=== PATIENT | female | born 1950 | race Caucasian/White ===

== ENCOUNTER 2018-04-09 00:52 | Outpatient (CLI) | payer MEDICARE, MEDICAID, SELFPAY ==
--- NOTE | 2018-04-09 14:15 | SCREENCT_ITS ---
SYMPTOMS/DIAGNOSIS: PERSONAL HISTORY OF NICOTINE DEPENDENCE, Z87.891 CT SCAN OF THE CHEST: CT scan of the chest was performed according to the lung cancer screening protocol. Comparison is 04/04/17. There is atherosclerosis of the thoracic aorta , but no aneurysmal dilatation is seen. The heart size is within normal limits. No significant pericardial effusion is seen. Coronary artery calcifications are present. No significant mediastinal, hilar or axillary adenopathy is present. No pleural effusion or pneumothorax is present. Central lobular and paraseptal emphysematous changes are seen in the lungs. There has been no change in size of the 3 mm noncalcified subpleural nodule in the anterolateral aspect of the left upper lobe. No new pulmonary nodules are present. There is mild subpleural scarring in the lungs. No focal consolidating infiltrates are present. Degenerative changes are seen in the spine. IMPRESSION: Stable 3 mm left upper lobe pulmonary nodule. No new pulmonary nodules. Category 2. Lung-RAD Category: 2- Benign Appearance/Behavior Lung- RAD Management of Findings: Continue annual LDCT screening in 12 months
== END 2018-04-09 00:53 ==
PROVIDERS: PCP Nurse Practitioner Family; Visit Provider Internal Medicine
DX: Z12.2 Encounter for screening for malignant neoplasm of respiratory organs (principal); R91.1 Solitary pulmonary nodule; Z87.891 Personal history of nicotine dependence
CPT/HCPCS: G0297

== ENCOUNTER 2018-06-20 01:24 | Outpatient (CLI) | payer MEDICARE, MEDICAID, SELFPAY ==
--- NOTE | 2018-06-20 13:15 | DI.RAD_ITS ---
SYMPTOMS/DIAGNOSIS: [facility], Z00.00, ASYMPTOMATIC POSTMENOPAUSAL STATUS, Z78.0 DEXA SCAN: The scanogram is unremarkable. For the left hip, a T score of -1.6 and a Z score of -0.3 indicate osteopenia and an increased fracture risk. For the lumbar spine, a T score of -1.0 and a Z score of 0.9 are within the normal range. For the left forearm, a T score of -1.1 and a Z score of 0.5 are within the normal range.
== END 2018-06-20 01:44 ==
PROVIDERS: PCP Nurse Practitioner Family; Visit Provider Nurse Practitioner Family
DX: M85.88 Other specified disorders of bone density and structure, other site (principal); Z78.0 Asymptomatic menopausal state
CPT/HCPCS: 77080

== ENCOUNTER 2018-07-18 11:50 | Outpatient (REF) | payer MEDICARE, MEDICAID, SELFPAY ==
[2018-07-18 22:43] LABS: Magnesium 1.7 mg/dL (1.8-2.4); Vitamin B12 601 pg/mL (193-986)
== END 2018-07-18 12:10 ==
LOC: NCHCN 11:50
PROVIDERS: PCP Nurse Practitioner Family; Visit Provider Nurse Practitioner Family
DX: K30 Functional dyspepsia (principal); F39 Unspecified mood [affective] disorder; M85.80 Other specified disorders of bone density and structure, unspecified site; M54.2 Cervicalgia; R25.1 Tremor, unspecified; R91.8 Other nonspecific abnormal finding of lung field; J44.9 Chronic obstructive pulmonary disease, unspecified
CPT/HCPCS: 82607; 83735

== ENCOUNTER 2018-09-05 14:27 | Outpatient (REF) | payer MEDICARE, MEDICAID, SELFPAY ==
[2018-09-05 21:26] LABS: Anion Gap 12.4 mmol/L (3-11); BUN 23 mg/dL (7-18); CO2 23.6 mmol/L (21.0-32.0); CREATININE 1.07 mg/dL (0.55-1.02); Chloride 102 mmol/L (98-107); Estimated GFR 51.31 (mL/min/1.73m2); Glucose 87 mg/dL (70-100); Magnesium 1.6 mg/dL (1.8-2.4); Potassium 4.6 mmol/L (3.5-5.1); Sodium 138 mmol/L (136-145)
== END 2018-09-05 14:47 ==
LOC: NCHCN 14:27
PROVIDERS: PCP Nurse Practitioner Family; Visit Provider Nurse Practitioner Family
DX: F25.1 Schizoaffective disorder, depressive type (principal); F39 Unspecified mood [affective] disorder; M85.80 Other specified disorders of bone density and structure, unspecified site; R05 Cough; K30 Functional dyspepsia; M54.5 Low back pain; J30.9 Allergic rhinitis, unspecified; J44.9 Chronic obstructive pulmonary disease, unspecified
CPT/HCPCS: 80048; 83735

== ENCOUNTER 2018-12-13 14:51 | Outpatient (REF) | payer MEDICARE, MEDICAID, SELFPAY ==
[2018-12-13 21:20] LABS: Magnesium 1.8 mg/dL (1.8-2.4)
== END 2018-12-13 15:11 ==
LOC: NCHCN 14:51
PROVIDERS: PCP Nurse Practitioner Family; Visit Provider Nurse Practitioner Family
DX: E83.42 Hypomagnesemia (principal)
CPT/HCPCS: 83735

== ENCOUNTER 2019-01-28 15:17 | Outpatient (CLI) | payer MEDICARE, MEDICAID, SELFPAY ==
--- NOTE | 2019-01-28 15:37 | DI.RAD_ITS ---
SYMPTOMS/DIAGNOSIS: COUGH, R05; CHRONIC OBSTRUCTIVE PULMONARY DISEASE, J44.9 CHEST X-RAY, PA AND LATERAL: Comparison is 07/25/17. The heart size and pulmonary vasculature are within normal limits. No infiltrates, effusions or pneumothoraces are identified. Degenerative changes are seen in the spine. IMPRESSION: No acute pulmonary process.
== END 2019-01-28 15:37 ==
PROVIDERS: PCP Nurse Practitioner Family; Visit Provider Nurse Practitioner Family
DX: R05 Cough (principal); J44.9 Chronic obstructive pulmonary disease, unspecified
CPT/HCPCS: 71046

== ENCOUNTER 2020-04-05 13:01 | Outpatient (REF) | payer MEDICARE, MEDICAID, SELFPAY ==
[2020-04-05 20:46] LABS: HCT 42.4 % (36.0-46.0); MCH 32.1 pg (27.0-33.0); MCV 97.2 fL (80-95); MPV 11.4 fL (8.0-11.0); Platelet Count 339 10^3/uL (130-400); RBC 4.36 10^6/uL (3.93-5.22); RDW 12.6 % (11.7-14.6); RDW-SD 45.3 fL; WBC 11.53 10^3/uL (4.4-10.8)
[2020-04-05 21:14] LABS: ALT 37 U/L (14-59); AST 27 U/L (15-37); Alkaline Phosphatase 72 U/L (46-116); Anion Gap 11.7 mmol/L (3-11); BUN 15 mg/dL (7-18); Bilirubin, Total 0.2 mg/dL (0.2-1.0); CO2 24.3 mmol/L (21.0-32.0); CREATININE 0.97 mg/dL (0.55-1.02); Calcium 9.1 mg/dL (8.5-10.1); Chloride 101 mmol/L (98-107); Estimated GFR 57.28 (mL/min/1.73m2); FREE T4 0.86 ng/dL (0.76-1.46); Glucose 99 mg/dL (74-106); NT-proBNP 100 pg/mL (<300); Potassium 4.6 mmol/L (3.5-5.1); Sodium 137 mmol/L (136-145); TSH 1.14 uIU/mL (0.36-3.74); Total Protein 7.2 g/dL (6.4-8.2)
== END 2020-04-05 13:21 ==
LOC: NCHCN 13:01
PROVIDERS: PCP Nurse Practitioner Family; Visit Provider Internal Medicine
DX: R25.1 Tremor, unspecified (principal); E83.42 Hypomagnesemia; R91.8 Other nonspecific abnormal finding of lung field; R06.09 Other forms of dyspnea
CPT/HCPCS: 80053; 85027; 83735; 83880; 84439; 84443

== ENCOUNTER 2021-07-21 16:40 | Outpatient (REF) | payer MEDICARE, MEDICAID, SELFPAY ==
[2021-07-21 21:14] LABS: Magnesium 2.2 mg/dL (1.8-2.4)
== END 2021-07-21 16:41 | disposition home or self-care (01) ==
LOC: NCHCN 16:40
PROVIDERS: PCP Nurse Practitioner Family; Visit Provider Nurse Practitioner Family
DX: E83.42 Hypomagnesemia (principal); R55 Syncope and collapse
CPT/HCPCS: 83735

== ENCOUNTER 2022-02-01 12:02 | Emergency (ER) | payer MEDICARE, MEDICAID, SELFPAY ==
[2022-02-01] VITALS (9 sets, daily range): BP systolic 101–151; BP diastolic 48–65; PULSE 55–78; RESP 16–24; TEMP 36.7–37.5; O2SAT 93–99
--- NOTE | 2022-02-01 12:18 | DI.RAD_ITS ---
Exam(s) XR CHEST 1V IN DI DEPT EXAM: XR CHEST 1V IN DI DEPT CLINICAL HISTORY: PUI, Cough TECHNIQUE: COMPARISON: CR XR CHEST 2V PA LATERAL from 01/28/2019 FINDINGS: There is a poor inspiration on this semi upright AP film. Lungs appear grossly clear. No pleural ef fusion. Normal cardiac size. IMPRESSION: No evidence of acute process. RADIATION DOSE DELIVERED: Total DLP
--- NOTE | 2022-02-01 12:30 | DI.CT_ITS ---
Exam(s) CT HEAD WO EXAM: CT HEAD WO CLINICAL HISTORY: AMS. TECHNIQUE: Imaging Protocol: Axial computed tomography images with coronal and sagittal reformatted images were created and reviewed COMPARISON: No exams were available for comparison FINDINGS: There is mild generalized cerebral atrophy. There is a question of small focal area of decreased attenuation in the periventricular to subcortica l white matter of left parietal lobe. No gross mass effect seen. This is an an indeterminate findin g but could represent evolving infarction or intracranial mass lesion. Correlation with brain MRI re commended for further evaluation. No evidence of acute intracranial hemorrhage, mass effect, or midline shift. The orbital structures are unremarkable. The temporal bone structures appear intact. Calvarium: Normal. Visualized Paranasal sinuses/Mastoids: Clear. IMPRESSION: Question area decreased attenuation left parietal lobe as described above, additional evaluation with MRI recommended to evaluate possible infarct or mass lesion.. RADIATION DOSE DELIVERED: 768.15mGy.cm Total DLP 768.15mGy.cm Total DLP !Error CTDIvol DATA REPOSITORY: All CT scans at this facility are submitted to the National Radiology Data Registry (NRDR) Dose Index Registry (DIR) with the [employer] (ACR). RADIATION OPTIMIZATION: All CT scans at this facility use at least one of these dose optimization te chniques: automated exposure control; mA and/or kV adjustment per patient size (includes targeted exa ms where dose is matched to clinical indication); or iterative reconstruction.
[2022-02-01 12:48] LABS: Abs Immature Grans 0.04 10^3/uL (0.0-0.06); Absolute Basophil Count 0.06 10^3/uL (0.0-0.2); Absolute Eosinophil Count 0.59 10^3/uL (0.0-0.7); Absolute Monocyte Count 1.08 10^3/uL (0.1-0.8); Absolute Neutrophil Count 6.37 10^3/uL (1.2-6.7); Basophils % 0.6; Eosinophils % 5.8; HCT 39.2 % (36.0-46.0); Immature Grans % 0.4; Lymphocytes % 19.7; MCH 32.4 pg (27.0-33.0); MCHC 33.2 % (32.0-36.0); MCV 98 fL (80-95); MPV 10.9 fL (8.0-11.0); Monocytes % 10.7; Neutrophils % 62.8; Platelet Count 272 10^3/uL (130-400); RBC 4.01 10^6/uL (3.93-5.22); RDW 12.6 % (11.7-14.6); RDW-SD 45.5 fL; WBC 10.14 10^3/uL (4.4-10.8)
--- NOTE | 2022-02-01 12:50 | ED.GENADUL_ITS ---
Discharge Plan Disposition Patient Disposition: STILL A PATIENT Discharge Details Primary Care Provider: Kiah Luna ED Provider: Carlos Alberto Nguyen Home Meds and New Rx's Prescriptions: No Action dextromethorphan-guaifenesin 60-1,200 mg tablet extended release 12 hr 1 tab PO Q12H Qty: 60 2RF magnesium L-lactate [Magtab] 84 mg tablet extended release 84 mg PO BID calcium carbonate-vitamin D3 600 mg(1,500mg) -400 unit tablet,chewable 1 tab PO DAILY (DME) Aerochamber MV spacer See Dose Instructions .ROUTE .MEDSUPPLY Qty: 1 Rx Instructions: As directed Dalila Back and Body 500-32.5 mg tablet 1 tab PO QHS PRN cyclobenzaprine 5 mg tablet 5 mg PO Q8H PRN PRN Label Comments: very rare use lorazepam 1 mg tablet 1 mg PO BID Qty: 180 3RF Rx Instructions: palliative care patient montelukast [Singulair] 10 MG tablet 10 mg PO DAILY fluoxetine [Prozac] 20 MG capsule 40 mg PO DAILY Spiriva with HandiHaler 1 PUFF capsule, w/inhalation device 1 cap Inhalation DAILY polyethylene glycol 3350 [Miralax] 17 gram/dose Powder 17 g PO DAILY PRN PreserVision AREDS-2 250-90-40-1 mg Capsule 1 tab PO BID prednisone 5 mg tablet 5 tab PO DAILY Label Comments: TAKE ONE TABLET BY MOUTH EVERY DAY ropinirole 0.5 mg Tablet 0.5 mg PO BID morphine 10 mg/5 mL solution 2.5 ml PO HS PRN Label Comments: GIVE 2.5ML BY MOUTH AT BEDTIME NEEDED FOR DYSPNEA +MAX 5ML PER DAY+ azelastine-fluticasone [Dymista] 137-50 mcg/spray [place],Non-Aerosol 1 spray INTRANASAL BID Rx Instructions: administer into each nostril docusate sodium 100 mg capsule 100 mg PO TID Rx Instructions: capsules only ' unable to swallow tablets albuterol sulfate [ProAir HFA] 90 mcg/actuation Hfa Aerosol Inhaler 2 puff INHALATION 6XD PRN primidone 50 mg tablet 100 mg PO BID Medical Decision Making 61-year-old female presents to the ER via EMS with a chief complaint of altered mental status. Per EMS stroke scale negative. On initial presentation she appears anxious and is coughing she reports that she is vaccinated for COVID. Per EMS report she does have some possible aphasia however this is intermittent. She does have a past medical history of COPD, anxiety, chronic bronchitis, morphine dependent she does live alone. She does have a past medical history of restless leg syndrome, tremor hypomagnesemia, dyspepsia, mood disorder, osteopenia and accidental falls. She does not take any blood thinners Last known well was this morning. She has no gross motor neurodeficit however she is shaky, has some restless leg syndrome, pupils are 5 mm on the right, 3 mm on the left reactive. She does have short-term memory loss. Work-up ordered including CBC CMP, urinalysis, In-N-Out catheter,urine drug screen, fluvid which is negative, CT head, 1346: Spoke with Dr. Bhatti radiology regarding head CT he reports a hypoattenuation in the left parietal lobe which could be a developing infarction versus mass he recommends an MRI brain without contrast which is ordered. Patient's labs were hemolyzed redrawn, 1411: Urine obtained via In and out specimen by myself.. Spoke with Krystal patients contact who will come visit. 1420: Will page palliative care. Fabiola AGUIRRE who recommends to keep them involved for either inpatient or home care. Patient at this time does not have HOME HEALTH services. Will consider Admission. 1449: Spoke with hospitalist team they recommend waiting for the MRI results and then are willing to admit patient if needed. Urinalysis shows no evidence for UTI. Does have some trace ketones PT is 10.4 INR 1.0 APTT 28.6 UDS is positive for barbiturates. Care is to be handed off to oncoming provider Cj Nguyen NP pending MRI result and disposition. I did discuss patient case in details with him he verbalizes understanding. This text was generated using Opternative dictation system, please disregard any oddities of phrase or misspellings. Medical Records Medical records reviewed: Yes I reviewed the patient's medical records. Medical records narrative: Patient was seen by palliative care Dr. Johnson October 2021 Lab Data Lab results reviewed: Yes I reviewed the patient's lab results. Labs: Laboratory Tests Range/Units 02/01/22 02/01/22 02/01/22 12:23 12:35 12:35 WBC (4.4-10.8) 10^3/uL 10.14 RBC (3.93-5.22) 10^6/uL 4.01 Hgb (11.2-15.7) g/dL 13.0 Hct (36.0-46.0) % 39.2 MCV (80-95) fL 98 H MCH (27.0-33.0) pg 32.4 MCHC (32.0-36.0) % 33.2 RDW (11.7-14.6) % 12.6 Plt Count (130-400) 10^3/uL 272 MPV (8.0-11.0) fL 10.9 Immature Gran % 0.4 Neutrophils % 62.8 Lymphocytes % 19.7 Monocytes % 10.7 Eosinophils % 5.8 Basophils % 0.6 Nucleated RBC % (0.0-0.3) % 0.0 Absolute Neutrophils (1.2-6.7) 10^3/uL 6.37 Absolute Lymphocytes (1.2-3.4) 10^3/uL 2.00 Absolute Monocytes (0.1-0.8) 10^3/uL 1.08 H Absolute Eosinophils (0.0-0.7) 10^3/uL 0.59 Absolute Basophils (0.0-0.2) 10^3/uL 0.06 PT (9.3-11.0) sec INR (0.9-1.1) APTT (21.0-27.5) sec Sodium Cancelled Potassium Cancelled Chloride Cancelled Carbon Dioxide Cancelled Anion Gap Cancelled BUN Cancelled Creatinine Cancelled Estimated GFR/1.73 m2 Cancelled Glucose Cancelled Calcium Cancelled Magnesium Cancelled Total Bilirubin Cancelled AST Cancelled ALT Cancelled Alkaline Phosphatase Cancelled Total Protein Cancelled Albumin Cancelled Urine Color (Yellow) Urine Clarity (Clear) Urine pH (5-8) Ur Specific [place] (1.005-1.025) Urine Protein (Negative) mg/dL Urine Ketones (Negative) mg/dL Urine Blood (Negative) Urine Nitrite (Negative) Urine Bilirubin (Negative) Urine Urobilinogen (Up TO 0.2) EU/dL Ur Leukocyte Esterase (Negative) Urine Glucose (Negative) mg/dL Urine Opiates Screen (Negative) Ur Barbiturates Screen (Negative) Ur Tricyclics Screen (Negative) Ur Amphetamines Screen (Negative) U Benzodiazepines Scrn (Negative) Urine Cocaine Screen (Negative) Ur THC Screen (Negative) Ethyl Alcohol Cancelled COVID-19 Source Nasopharynx SARS-CoV-2 (PCR) (Negative) Negative Influenza Type A (PCR) (Negative) Negative Influenza Type B (PCR) (Negative) Negative RSV (PCR) (Negative) Negative Range/Units 02/01/22 02/01/22 02/01/22 13:22 14:08 14:08 WBC (4.4-10.8) 10^3/uL RBC (3.93-5.22) 10^6/uL Hgb (11.2-15.7) g/dL Hct (36.0-46.0) % MCV (80-95) fL MCH (27.0-33.0) pg MCHC (32.0-36.0) % RDW (11.7-14.6) % Plt Count (130-400) 10^3/uL MPV (8.0-11.0) fL Immature Gran % Neutrophils % Lymphocytes % Monocytes % Eosinophils % Basophils % Nucleated RBC % (0.0-0.3) % Absolute Neutrophils (1.2-6.7) 10^3/uL Absolute Lymphocytes (1.2-3.4) 10^3/uL Absolute Monocytes (0.1-0.8) 10^3/uL Absolute Eosinophils (0.0-0.7) 10^3/uL Absolute Basophils (0.0-0.2) 10^3/uL PT (9.3-11.0) sec INR (0.9-1.1) APTT (21.0-27.5) sec Sodium 140 Potassium 4.2 Chloride 105 Carbon Dioxide 27.9 Anion Gap 7.1 BUN 16 Creatinine 1.0 Estimated GFR/1.73 m2 54.97 Glucose 85 Calcium 8.9 Magnesium 2.1 Total Bilirubin 0.3 AST 31 ALT 38 Alkaline Phosphatase 94 Total Protein 7.1 Albumin 3.7 Urine Color (Yellow) Yellow Urine Clarity (Clear) Clear Urine pH (5-8) 7.0 Ur Specific [place] (1.005-1.025) 1.015 Urine Protein (Negative) mg/dL Negative Urine Ketones (Negative) mg/dL Trace H Urine Blood (Negative) Negative Urine Nitrite (Negative) Negative Urine Bilirubin (Negative) Negative Urine Urobilinogen (Up TO 0.2) EU/dL 0.2 Ur Leukocyte Esterase (Negative) Negative Urine Glucose (Negative) mg/dL Negative Urine Opiates Screen (Negative) Negative Ur Barbiturates Screen (Negative) Positive A Ur Tricyclics Screen (Negative) Negative Ur Amphetamines Screen (Negative) Negative U Benzodiazepines Scrn (Negative) Negative Urine Cocaine Screen (Negative) Negative Ur THC Screen (Negative) Negative Ethyl Alcohol < 3.0 COVID-19 Source SARS-CoV-2 (PCR) (Negative) Influenza Type A (PCR) (Negative) Influenza Type B (PCR) (Negative) RSV (PCR) (Negative) Range/Units 02/01/22 14:25 WBC (4.4-10.8) 10^3/uL RBC (3.93-5.22) 10^6/uL Hgb (11.2-15.7) g/dL Hct (36.0-46.0) % MCV (80-95) fL MCH (27.0-33.0) pg MCHC (32.0-36.0) % RDW (11.7-14.6) % Plt Count (130-400) 10^3/uL MPV (8.0-11.0) fL Immature Gran % Neutrophils % Lymphocytes % Monocytes % Eosinophils % Basophils % Nucleated RBC % (0.0-0.3) % Absolute Neutrophils (1.2-6.7) 10^3/uL Absolute Lymphocytes (1.2-3.4) 10^3/uL Absolute Monocytes (0.1-0.8) 10^3/uL Absolute Eosinophils (0.0-0.7) 10^3/uL Absolute Basophils (0.0-0.2) 10^3/uL PT (9.3-11.0) sec 10.4 INR (0.9-1.1) 1.0 APTT (21.0-27.5) sec 28.6 H Sodium Potassium Chloride Carbon Dioxide Anion Gap BUN Creatinine Estimated GFR/1.73 m2 Glucose Calcium Magnesium Total Bilirubin AST ALT Alkaline Phosphatase Total Protein Albumin Urine Color (Yellow) Urine Clarity (Clear) Urine pH (5-8) Ur Specific [place] (1.005-1.025) Urine Protein (Negative) mg/dL Urine Ketones (Negative) mg/dL Urine Blood (Negative) Urine Nitrite (Negative) Urine Bilirubin (Negative) Urine Urobilinogen (Up TO 0.2) EU/dL Ur Leukocyte Esterase (Negative) Urine Glucose (Negative) mg/dL Urine Opiates Screen (Negative) Ur Barbiturates Screen (Negative) Ur Tricyclics Screen (Negative) Ur Amphetamines Screen (Negative) U Benzodiazepines Scrn (Negative) Urine Cocaine Screen (Negative) Ur THC Screen (Negative) Ethyl Alcohol COVID-19 Source SARS-CoV-2 (PCR) (Negative) Influenza Type A (PCR) (Negative) Influenza Type B (PCR) (Negative) RSV (PCR) (Negative) Core Measures Measure exclusions: not indicated HPI General Mode of arrival: EMS . Date/Time Provider Initiated Documentation: 02/01/22 12:18 . Limitations to Documentation: altered mental status . Information obtained by: patient, EMS, RN notes reviewed and old records reviewed . HPI Narrative: 71-year-old female presents to the ER via EMS with a chief complaint of altered mental status. Per EMS Cinncinati stroke scale negative. On initial presentation she appears anxious and is coughing she reports that she is vaccinated for COVID. Per EMS report she does have some possible aphasia however this is intermittent. She does have a past medical history of COPD, anxiety, chronic bronchitis, morphine dependent she does live alone. She does have a past medical history of restless leg syndrome, tremor, dysphagia, hypomagnesemia, dyspepsia, mood disorder, osteopenia and accidental falls. She does not take any blood thinners Last known well was this morning. She has no gross motor neurodeficit however she is shaky, has some restless leg syndrome, pupils are 5 mm on the right, 3 mm on the left reactive. She does have short-term memory loss. Related Data Home Medications Medication Instructions Recorded Confirmed fluoxetine 20 mg capsule (Prozac) 40 mg PO DAILY 11/08/16 02/01/22 montelukast 10 mg tablet 10 mg PO DAILY 11/08/16 02/01/22 (Singulair) tiotropium bromide 18 mcg capsule 1 cap inhalation DAILY 11/08/16 02/01/22 with inhalation device (Spiriva with HandiHaler) calcium carbonate 600 mg-vitamin 1 tab PO DAILY 02/26/19 02/01/22 D3 10 mcg (400 unit) chewable tablet inhalational spacing device #1 ea 02/26/19 10/18/21 (Aerochamber MV spacer) magnesium L-lactate 84 mg 84 mg PO BID 02/26/19 02/01/22 tablet,extended release (Magtab) primidone 50 mg tablet 100 mg PO BID 02/26/19 02/01/22 dextromethorphan-guaifenesin ER 60 1 tab PO Q12H #60 tabs 10/06/20 02/01/22 mg-1,200 mg tab,extend release,12hr aspirin-caffeine 500 mg-32.5 mg 1 tab PO QHS PRN 01/26/21 02/01/22 tablet (Dalila Back and Body) cyclobenzaprine 5 mg tablet 5 mg PO Q8H PRN PRN 01/26/21 02/01/22 lorazepam 1 mg tablet 1 mg PO BID anxiety #180 tabs 12/20/21 02/01/22 albuterol sulfate 90 mcg/actuation 2 puff inhalation 6XD PRN 02/01/22 02/01/22 aerosol inhaler (ProAir HFA) azelastine-fluticasone 137 mcg-50 1 spray intranasal BID 02/01/22 02/01/22 mcg/spray nasal spray (Dymista) docusate sodium 100 mg capsule 100 mg PO TID 02/01/22 02/01/22 morphine 10 mg/5 mL oral solution 2.5 ml PO HS PRN 02/01/22 02/01/22 polyethylene glycol 3350 17 17 g PO DAILY PRN 02/01/22 02/01/22 gram/dose oral powder (Miralax) prednisone 5 mg tablet 5 tab PO DAILY 02/01/22 02/01/22 ropinirole 0.5 mg tablet 0.5 mg PO BID 02/01/22 02/01/22 vit C 250 mg-vit E 90 mg-zinc 40 1 tab PO BID 02/01/22 02/01/22 mg-copper 1 [id number] capsule (PreserVision AREDS-2) Previous Rx's Medication Instructions Recorded dextromethorphan-guaifenesin ER 60 1 tab PO Q12H #60 tabs 10/06/20 mg-1,200 mg tab,extend release,12hr lorazepam 1 mg tablet 1 mg PO BID anxiety #180 tabs 12/20/21 Allergies Allergy/AdvReac Type Severity Reaction Status Date / Time codeine AdvReac Intermediate Nausea Unverified 02/01/22 12:23 doxycycline AdvReac Intermediate Nausea Unverified 02/01/22 12:23 hydrocodone AdvReac Intermediate Nausea Unverified 02/01/22 12:23 General Stated Complaint: AMS/LOC JESSICA: 3 Review of Systems All systems reviewed & are unremarkable except as noted in HPI and below Constitutional Constitutional: Reports as per HPI and Denies headache(s) ENT Ears, Nose, Mouth, and Throat: Denies headache(s) Cardiovascular Cardiovascular: Denies chest pain and Reports orthopnea Respiratory Respiratory: Reports cough Neurologic Neurologic: Denies headache(s) PFSH All Active Problems Chronic bronchitis (Acute) Lives alone with help available (Acute) Constipation (Acute) Dysphagia (Chronic) Dependence on continuous supplemental oxygen (Chronic) Allergic rhinitis (Acute) Oxygen desaturation (Chronic) with activity Anxiety (Chronic) Transitioned from hospice to self-care (Acute) Benzodiazepine dependence (Chronic) Morphine dependence (Chronic) takes for her chronic dyspnea Sedentary lifestyle (Acute) Dyspnea on minimal exertion (Chronic) Palliative care patient (Chronic) History of tobacco use (Chronic) 35 pack years COPD (chronic obstructive pulmonary disease) (Chronic) Medical History Accidental fall Bronchitis Cataracts, bilateral Cough Dyspepsia Hypomagnesemia Mood disorder Osteopenia Restless legs syndrome Tremor Family History Sister Atrial fibrillation Mother Atrial fibrillation COPD (chronic obstructive pulmonary disease) Advanced age 100 years old in 2020 Brother Asthma Brother Lung cancer Father , age 79 from esophageal cancer history of smoking Esophageal cancer Social History Smoking/Tobacco Use Status: Former Tobacco Use Tobacco: How many years used: 40 Second Hand Exposure: Yes Smoking risk assessment performed?: Yes Alcohol Intake: former Drug use: Never Substance use type: does not use Adopted: No Caregiver/Support person: Yes (sister Jb; lives near by) Details: mother, 101, lives in [facility] Household members: none Housing: apartment Number of Children: 0 number of grandchildren: 0 Communication Needs: Corrective Lenses Education Level: high school Do you need help understanding health information?: Often current occupation: retired, used to work in retail sales Pets and animals: No (had her dog Karena put down January 2021; could no longer care for her) Current gender identity: female What is your relationship status?: How often do you talk on the phone with friends or family?: three or more times per week How often do you get together with friends or relatives?: once per week Panel score (0-1 are the most socially isolated patients): 1 What type of physical activity do you participate in: assisted ambulation and sedentary lifestyle Duration: < 15 minutes/day Frequency: daily Special chivo needs: No Agree to transfusion: No Seatbelt use: always Working smoke detector in home: Yes Fire extinguisher in home: Yes Carbon monox detector in home: Yes Do you feel safe at home: Yes Do you feel safe in your relationship?: Yes Additional Social history: Bebe's mother aged 101 moved to [facility] in 2019. Bebe had been caregiver for her mom, putting up her medications, checking on her daily. This was getting hard for Bebe to do. Sister Krystal regularly involved though spends time at her camp in the summer. Bebe had a little dog, Karena. She had her put down in January 2021 as she felt she could not take care of her. She couldn't take her for walks. She got breathless just taking her outside to defecate. Loner. Other people get on my nerves. Gets MOW and sister takes her shopping. Doesn't socialize, especially not since COVID. Exam Narrative Exam Narrative: Constitutional: Alert and oriented x2. Appears stated age. Normal body habitus. Head: Normocephalic, no trauma. Eyes: Pupils reactive to light, 3 mm on left 5 mm on the right noted, Eyelids symmetrical without lesions, discharge, or swelling. ENT: Bilateral TM's WNL, External ear normal to inspection, no mastoid TTP, swelling, or erythema, Nasal turbinates WNL, no nasal discharge. Chest: RRR, Normal S1, S2, distal pulses intact. Resp: Lungs Bilaterally with Rales. No increase work of breathing. Abdomen: Soft, non-distended, no palpated mass. Musculoskeletal: Unable to assess gait. Skin: No suspicious rashes or lesions. Capillary refill less than 2 sec. Neurologic: Alert and oriented x 2. Intermittently. She does have some expressive aphasia. Motor: No significant gross deficits noted, no pronator drift, decreased pedal flexion, decreased motor strength in bilateral lower extremities, no leg drop bilaterally. Reflexes: DTR's intact bilaterally. Hematologic/Lymphatic: No ecchymosis, no lymphadenopathy. Psych Speech and Movement: restless Affect: anxious affect Course Vital Signs Vital signs: Vital Signs Temperature 36.7 C 02/01/22 12:15 Pulse 76 02/01/22 12:15 Respiratory Rate 24 02/01/22 12:15 Blood Pressure 151/65 H 02/01/22 12:15 Pulse Oximetry 99 02/01/22 12:15 Temperature 36.7 C 02/01/22 12:15 Temperature Source Temporal Artery Scan 02/01/22 12:15 Pulse 76 02/01/22 12:15 Respiratory Rate 24 02/01/22 12:15 Blood Pressure 151/65 H 02/01/22 12:15 Blood Pressure Position Sitting 02/01/22 12:15 Pulse Oximetry 99 02/01/22 12:15 Oxygen Delivery Method Room Air 02/01/22 12:15 Oxygen Flow Rate 0 02/01/22 12:15 Pain Level 0 02/01/22 12:15 Lab/Test Results Lab/Test Results: Laboratory Tests Range/Units 02/01/22 12:35 WBC (4.4-10.8) 10^3/uL 10.14 RBC (3.93-5.22) 10^6/uL 4.01 Hgb (11.2-15.7) g/dL 13.0 Hct (36.0-46.0) % 39.2 MCV (80-95) fL 98 H MCH (27.0-33.0) pg 32.4 MCHC (32.0-36.0) % 33.2 RDW (11.7-14.6) % 12.6 Plt Count (130-400) 10^3/uL 272 MPV (8.0-11.0) fL 10.9 Immature Gran % 0.4 Neutrophils % 62.8 Lymphocytes % 19.7 Monocytes % 10.7 Eosinophils % 5.8 Basophils % 0.6 Nucleated RBC % (0.0-0.3) % 0.0 Absolute Neutrophils (1.2-6.7) 10^3/uL 6.37 Absolute Lymphocytes (1.2-3.4) 10^3/uL 2.00 Absolute Monocytes (0.1-0.8) 10^3/uL 1.08 H Absolute Eosinophils (0.0-0.7) 10^3/uL 0.59 Absolute Basophils (0.0-0.2) 10^3/uL 0.06 Procedures Other Description: Urinary catheter specimen obtained, Clear yellow urine obtained. Sign Out Sign Out Data: Sign Out Comment: Pending MRI result. Altered mental status, patient is a palliative care patient. I did consult with palliative care and hospitalist. Sister Krystal should be coming into the hospital to visit. CT showed possible evolving infarct versus mass. They recommend MRI. Consider admission if discharged patient needs home health care Last updated by Jennie Webster at 02/01/22 15:30
[2022-02-01 13:11] LABS: COVID-19 PCR Negative (Negative); Influenza A PCR Negative (Negative); Influenza B PCR Negative (Negative); RSV PCR Negative (Negative)
[2022-02-01 13:16] LABS: Source Nasopharynx
[2022-02-01] MEDS: LORazepam 1 MG TAB PO (13:26)
--- NOTE | 2022-02-01 13:30 | DI.MRI_ITS ---
Exam(s) MR BRAIN WO EXAM: MR BRAIN WO CLINICAL HISTORY: AMS, R/O Mass versus Infarct TECHNIQUE: Multiplanar multisequence MRI of the brain was performed. COMPARISON: No exams were available for comparison FINDINGS: There is mild generalized cerebral atrophy. There are diffuse areas of abnormal signal in periventricular white matter consistent with microvascu lar ischemic change. Some asymmetry is noted with more focal areas of signal abnormality in left par ietooccipital region, this could represent old infarct. No mass effect identified. No evidence of d iffusion restriction to suggest acute or subacute infarction period. The orbital and temporal bone structures appear intact as does the pituitary. Diffusion weighted imaging shows no evidence of infarction. Susceptibility weighted imaging shows no evidence of intracranial hemorrhage. There is normal flow void in the lummi of [place] vasculature. IMPRESSION: No evidence of acute intracranial process.. DATA REPOSITORY:
[2022-02-01 14:18] LABS: Bilirubin Negative (Negative); Blood Negative (Negative); Clarity Clear (Clear); Glucose Negative (Negative); Ketones Trace mg/dL (Negative); Leukocyte Esterase Negative (Negative); Nitrite Negative (Negative); Specific Gravity 1.015 (1.005-1.025); Urobilinogen 0.2 EU/dL (Up TO 0.2)
[2022-02-01 14:40] LABS: ALT 38 U/L (14-59); AST 31 U/L (15-37); Albumin 3.7 g/dL (3.4-5.0); Alkaline Phosphatase 94 U/L (46-116); Anion Gap 7.1 mmol/L (3-11); BUN 16 mg/dL (7-18); Bilirubin, Total 0.3 mg/dL (0.2-1.0); CO2 27.9 mmol/L (21.0-32.0); Calcium 8.9 mg/dL (8.5-10.1); Chloride 105 mmol/L (98-107); Estimated GFR 54.97 (mL/min/1.73m2); Glucose 85 mg/dL (74-106); Magnesium 2.1 mg/dL (1.8-2.4); Potassium 4.2 mmol/L (3.5-5.1); Sodium 140 mmol/L (136-145); Total Protein 7.1 g/dL (6.4-8.2)
[2022-02-01 14:57] LABS: ETHANOL BLOOD < 3.0 mg/dL (<10)
[2022-02-01 15:05] LABS: PTT Activated 28.6 sec (21.0-27.5); Prothrombin Time 10.4 sec (9.3-11.0)
[2022-02-01 15:19] LABS: *AMPHETAMINES SCREEN URINE Negative (Negative); *BARBITURATES SCREEN URINE Positive (Negative); *BENZODIAZEPINES SCREEN URINE Negative (Negative); Cannabinoids THC Negative (Negative); Cocaine Screen,Urine Negative (Negative); OPIATES URINE SCREEN Negative (Negative); Tricyclic Antidepressants Negative (Negative)
[2022-02-01] MEDS: LORazepam 2 MG/ML VIAL 0.5 MG IVP (15:31)
--- NOTE | 2022-02-01 17:04 | NUR.NOTE ---
Nursing Note: Per Palliative Care, home visit February 07 =
--- NOTE | 2022-02-01 17:04 | NUR.NOTE ---
Nursing Note: Per Palliative Care, home visit on February 07 at 1pm. Edilia Parmar
--- NOTE | 2022-02-01 18:02 | NUR.NOTE ---
After pt ate 100% of her supper she walked 50+ steps in the ER allan, her gait is steady with good balance. Pt reported SOB with ambulation, able to recover her breath within 1 minute of sitting back down. Lung sounds with expiratory wheezing auscultated throughout posteriorly after ambulation. Pt's provider Rafa Nguyen updated regarding this assesment.
--- NOTE | 2022-02-01 18:44 | ED.PROG_ITS ---
Date of service: 02/01/22 Time of Service: 15:50 Medical Decision Making Please see Hoa Webster's initial documentation for HPI, review of systems, and exam. Patient was signed out to me pending MRI results and reassessment. MRI was reviewed with radiologist and showed microvascular ischemic changes that were chronic in nature with no signs of acute/subacute findings including stroke. Patient was reassessed and stated that she was feeling better. Patient had more alertness and had no complaints at this time. She stated that this morning she was experiencing brain fog and having difficulty making decisions. Patient denied any focal deficits noted at that time. Patient is now ambulatory and continuing to feel improvement. Did contact hospitalist for consideration of admission due to altered mental status mainly for an observation stay and possible outpatient resources as needed. After discussion of case with hospitalist he was able to contact patient's palliative care provider whom recommended discharge with them arranging a home visit next week. Patient was given a meal and was able to eat the meal and continue to state signs of improvement. Patient is agreeable to discharge with being informed that she may return to the emergency department for any new or significant worsening of symptoms but given that she is ambulatory, able to appropriately intake food, and states improvement I do feel that she is safe for discharge at this point. I question possible acute anxiety reaction due to patient's history but this is difficult to determine. Given unremarkable laboratory work-up and negative MRI with improvement of symptoms I am reassured for patient to be discharged on outpatient basis. Plan of care was discussed with her sister who also helps care for her. Medical Records Medical records reviewed: Yes I reviewed the patient's medical records. Lab Data Lab results reviewed: Yes I reviewed the patient's lab results. Exam Const General: cooperative, comfortable, no acute distress, not anxious, not ill appearing and not lethargic Orientation: alert, awake and oriented x3 HENMT Mouth: moist mucous membranes Resp Effort & Inspection: normal respiratory effort, able to speak in complete sentences and no respiratory distress Neuro General: patient alert, patient awake, patient oriented x3, moves all ext remities and no focal motor deficits Sensory Exam: no sensory deficits noted Sign Out Sign Out Data: Sign Out Comment: Pending MRI result. Altered mental status, patient is a palliative care patient. I did consult with palliative care and hospitalist. Sister Krystal should be coming into the hospital to visit. CT showed possible evolving infarct versus mass. They recommend MRI. Consider admission if discharged patient needs home health care Last updated by Jennie Webster at 02/01/22 15:30 Discharge Plan Disposition Patient Disposition: HOME Condition: Improving Discharge Details Clinical Impression: Acute confusion, COPD (chronic obstructive pulmonary disease), Palliative care patient, Anxiety Primary Care Provider: Kiah Luna ED Provider: Carlos Alberto Nguyen Home Meds and New Rx's Prescriptions: No Action dextromethorphan-guaifenesin 60-1,200 mg tablet extended release 12 hr 1 tab PO Q12H Qty: 60 2RF magnesium L-lactate [Magtab] 84 mg tablet extended release 84 mg PO BID calcium carbonate-vitamin D3 600 mg(1,500mg) -400 unit tablet,chewable 1 tab PO DAILY (DME) Aerochamber MV spacer See Dose Instructions .ROUTE .MEDSUPPLY Qty: 1 Rx Instructions: As directed Dalila Back and Body 500-32.5 mg tablet 1 tab PO QHS PRN cyclobenzaprine 5 mg tablet 5 mg PO Q8H PRN PRN Label Comments: very rare use lorazepam 1 mg tablet 1 mg PO BID Qty: 180 3RF Rx Instructions: palliative care patient montelukast [Singulair] 10 MG tablet 10 mg PO DAILY fluoxetine [Prozac] 20 MG capsule 40 mg PO DAILY Spiriva with HandiHaler 1 PUFF capsule, w/inhalation device 1 cap Inhalation DAILY polyethylene glycol 3350 [Miralax] 17 gram/dose Powder 17 g PO DAILY PRN PreserVision AREDS-2 250-90-40-1 mg Capsule 1 tab PO BID prednisone 5 mg tablet 5 tab PO DAILY Label Comments: TAKE ONE TABLET BY MOUTH EVERY DAY ropinirole 0.5 mg Tablet 0.5 mg PO BID morphine 10 mg/5 mL solution 2.5 ml PO HS PRN Label Comments: GIVE 2.5ML BY MOUTH AT BEDTIME NEEDED FOR DYSPNEA +MAX 5ML PER DAY+ azelastine-fluticasone [Dymista] 137-50 mcg/spray [place],Non-Aerosol 1 spray INTRANASAL BID Rx Instructions: administer into each nostril docusate sodium 100 mg capsule 100 mg PO TID Rx Instructions: capsules only ' unable to swallow tablets albuterol sulfate [ProAir HFA] 90 mcg/actuation Hfa Aerosol Inhaler 2 puff INHALATION 6XD PRN primidone 50 mg tablet 100 mg PO BID Discharge Instructions Instructions: COPD (Chronic Obstructive Pulmonary Disease) (ED), Anxiety (ED) Additional Instructions: Please stay well-hydrated and take your medications as prescribed. If you have any new or significant worsening of symptoms please contact 911 or come to the emergency department for immediate reassessment. Your palliative care provider will visit you on February 07 at 1 PM next week so please ensure that you are home at that time. Referrals: Phyllis Mcarthur NP [NURSE PRACTITIONER] - 02/07/22 1:00 pm
== END 2022-02-01 19:41 | disposition home or self-care (01) ==
PROVIDERS: Registered Nurse Emergency; Emergency Provider Nurse Practitioner Family; PCP Nurse Practitioner Family
DX: R41.82 Altered mental status, unspecified (principal); J44.9 Chronic obstructive pulmonary disease, unspecified; F41.9 Anxiety disorder, unspecified; F11.20 Opioid dependence, uncomplicated; E83.42 Hypomagnesemia; R10.13 Epigastric pain
CPT/HCPCS: 36415; 36416; 51701; 80053; 80307; 82962; 87637; 96374; 99284; 99285; 70450; 70551; 71045; 80320; 81003; 83735; 85025; 85610; 85730; J2060

== ENCOUNTER → 2024-11-06 15:19 | Outpatient (BNVA) | payer MEDICARE, MEDICAID, SELFPAY | PROVIDERS: PCP Nurse Practitioner Family; Referring Provider Nurse Practitioner Family; Visit Provider Podiatrist | DX: L60.0 Ingrowing nail (principal); M79.675 Pain in left toe(s) | CPT/HCPCS: 11750; 99204 ==

== ENCOUNTER → 2024-12-23 13:56 | Outpatient (BNVA) | payer MEDICARE, MEDICAID, SELFPAY | PROVIDERS: PCP Nurse Practitioner Family; Referring Provider Nurse Practitioner Family; Visit Provider Podiatrist | DX: L60.0 Ingrowing nail (principal); B35.1 Tinea unguium; M79.675 Pain in left toe(s) | CPT/HCPCS: 99213 ==

== ENCOUNTER 2025-06-16 12:24 | Outpatient (REF) | payer MEDICARE, MEDICAID, SELFPAY ==
[2025-06-16 16:12] LABS: Abs Immature Grans 0.06 10^3/uL (0.0-0.06); HCT 42.3 % (36.0-46.0); HGB 13.8 g/dL (11.2-15.7); Immature Grans % 0.6 %; MCH 32.8 pg (27.0-33.0); MCHC 32.6 % (32.0-36.0); MCV 101 fL (80-95); MPV 10.9 fL (8.0-11.0); Platelet Count 348 10^3/uL (130-400); RBC 4.21 10^6/uL (3.93-5.22); RDW 13.3 % (11.7-14.6); RDW-SD 49.5 fL; WBC 10.69 10^3/uL (4.4-10.8)
[2025-06-16 16:28] LABS: Iron 101 ug/dL (50-170); Total Iron Binding Capacity 210 ug/dL (250-450); Transferrin Sat 48 % (15-50)
[2025-06-16 16:47] LABS: ALT 22 U/L (14-59); AST 18 U/L (15-37); Albumin 3.6 g/dL (3.4-5.0); Alkaline Phosphatase 99 U/L (46-116); Anion Gap 11.0 mmol/L (3-11); BUN 12 mg/dL (7-18); Bilirubin, Total 0.3 mg/dL (0.2-1.0); CO2 25.0 mmol/L (21.0-32.0); Calcium 9.1 mg/dL (8.5-10.1); Chloride 102 mmol/L (98-107); Estimated GFR 78.24 (mL/min/1.73m2); Ferritin 101 ng/mL (8-252); Folate 4.9 ng/mL (8.6-20.0); Glucose 93 mg/dL (74-106); Potassium 5.1 mmol/L (3.5-5.1); Sodium 138 mmol/L (136-145); Total Protein 7.0 g/dL (6.4-8.2); Vitamin D 25 Total 13 ng/mL (30-100)
== END 2025-06-16 12:25 | disposition home or self-care (01) ==
LOC: NCHCN 12:24
PROVIDERS: PCP Nurse Practitioner Family; Visit Provider Nurse Practitioner Family
DX: G25.81 Restless legs syndrome (principal); M85.80 Other specified disorders of bone density and structure, unspecified site
CPT/HCPCS: 80053; 82306; 80184; 80188; 82728; 82746; 83540; 83550; 85025